=== PATIENT | male | born 1955 | race Caucasian/White ===

== ENCOUNTER → 2017-02-07 | Outpatient (CLI) | payer OTHER | LOC: BMCIMAGING 16:33 | PROVIDERS: ATTEND Internal Medicine | DX: T14.90 Injury, unspecified (principal) ==

== ENCOUNTER 2018-09-03 12:03 | Emergency (ER) | payer OTHER ==
--- NOTE | 2018-09-03 12:59 | EDPHY ---
H & P Stated Complaint: Hit head on sign at 0945, headache, left neck and shoulder pain. Time Seen by Provider: 09/03/18 12:41 - Personal History Current Tetanus Diphtheria and Acellular Pertussis (TDAP): Yes - Medical/Surgical History Hx Asthma: No Hx Chronic Respiratory Disease: No Hx Diabetes: No Hx Cardiac Disease: No Hx Renal Disease: No Hx Cirrhosis: No Hx Alcoholism: No Hx HIV/AIDS: No Hx Splenectomy or Spleen Trauma: No Other PMH: Brain AVM w/surg, epilepsy. meniscus repair, foot surg w/pins - Social History Smoking Status: Never smoked Constitutional: Initial Vital Signs Temperature (C) 36.5 C 09/03/18 12:05 Heart Rate 68 09/03/18 12:05 Respiratory Rate 16 09/03/18 12:05 Blood Pressure 132/88 H 09/03/18 12:05 O2 Sat (%) 98 09/03/18 12:05 O2 Delivery Mode Room Air Allergies/Adverse Reactions: carbamazepine [From Tegretol] Allergy (Verified 09/03/18 12:10) levetiracetam [From Keppra] Allergy (Verified 09/03/18 12:10) Home Medications: Medication Instructions Recorded Lamotrigine 10/10/13 Medical Decision Making - Diagnostics Imaging Results: Imaging Impressions Head CT 09/03/18 13:04 Impression: 1. 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 2. There is no acute intracranial abnormality identified on this unenhanced CT evaluation. 3. Chronic paranasal sinus mucosal thickening, as above-detailed. If there is further clinical concern regarding the patient's symptoms, MR imaging is suggested, if not otherwise contraindicated. Findings were discussed with Shaun James MD at 14:20, on 09/03/2018. Imaging: Discussed imaging studies w/ body recall instructor Radiologist, I viewed and interpreted images myself ED Course/Re-evaluation: CHIEF COMPLAINT: Hit head, confusion, photophobia HISTORY OF PRESENT ILLNESS: The patient is a 62 y/o male with a history of a brain AVM requiring surgery complaining of confusion, headache, and neck pain secondary to hitting his head today. At 09:45, 3 hours ago, the patient hit his head on a hanging sign. He did not lose consciousness and has no amnesia. However, since hitting his head he has felt more confused, and developed light sensitivity, neck and left shoulder pain. Due to the combination of symptoms he decided to present to the emergency department. No fever, shortness of breath, chest pain, abdominal pain , urinary or bowel complaints, numbness, paresthesias. REVIEW OF SYSTEMS: A comprehensive 10 system review of systems is otherwise negative aside from elements mentioned in the history of present illness and medical decision making. PHYSICAL EXAM: HR, BP, O2 Sat, RR. Temp noted General Appearance: Alert, well hydrated, appropriate, and non-toxic appearing. Head: Small right samaritan contusion. Eyes: Pupils equal, round, reactive to light and accommodation, EOMI, no trauma , no injection. Ears: Clear bilaterally, no perforation, normal landmarks Nose: Atraumatic, no rhinorrhea, clear. Throat: There is no erythema or exudates, no lesions, normal tonsils, mucus membranes moist. Neck: Supple, 2+ carotid upstroke, nontender, no lymphadenopathy. Respiratory: No retractions, no distress, no wheezes, and no accessory muscle use. Lungs are clear to auscultation bilaterally. Cardiovascular: Regular rate and rhythm, no murmurs, rubs, or gallops. Bilateral carotid, radial, dorsalis pedis, and posterior tibial pulses intact. Good capillary refill all extremities. Gastrointestinal: Abdomen is soft, nontender, non-distended, no masses, no rebound, no guarding, no peritoneal signs. Musculoskeletal: Normal active ROM of all extremities, atraumatic. Neurological: Alert, appropriate, and interactive. The patient has normal DTRs and non-focal cranial nerves, motor, sensory, and cerebellar exam. Skin: No rashes, good turgor, no nodules on palpation. Past medical history: Epilepsy Past surgical history: Brain AVM surgery, meniscus repair, foot surgery Family history: Denies Social history: Lives in [place], single, not employed DIAGNOSTICS/PROCEDURES/CRITICAL CARE TIME: Head CT: No acute findings. DIFFERENTIAL DIAGNOSIS: The differential diagnosis for the patient's head injury included but was not limited to concussion, skull fracture, intra-parenchymal contusion, subarachnoid , subdural and epidural hematoma. MEDICAL DECISION MAKING: The patient is a 62 y/o male with a history of a brain AVM requiring surgery presenting with confusion, headache, and neck pain secondary to hitting his head today. On exam he is photophobic and has a small contusion on his right samaritan. patient does meet [place] Head CT requirements. Head CT ordered. 1423: I spoke with Dr. Holland, radiologist, regarding patient's head CT which is normal. 1429: Reassessed patient and discussed imaging findings. He appears much better and is feeling better. I have advised him to follow up with Dr. Velasquez. Concussion precautions and return precautions provided; patient is comfortable with this plan. 1445: Reassessed patient as he is now concerned about his right shoulder and left wrist pain. It is possible that the patient has a right anterior cuff injury, but the patient has chronic left wrist pain. I have advised him to follow up with is PCP within the next week for further evaluation. Patient is comfortable with this plan. - Data Points Medications Given: Discontinued Medications Ondansetron HCl (Zofran Odt) 4 mg PO EDNOW ONE Stop: 09/03/18 13:38 Last Admin: 09/03/18 14:43 Dose: Not Given Departure - Departure Disposition: Home, Routine, Self-Care Clinical Impression: Left wrist pain Head injury Qualifiers: Encounter type: initial encounter Qualified Code(s): S09.90XA - Unspecified injury of head, initial encounter Concussion Qualifiers: Encounter type: initial encounter Loss of consciousness presence/duration: without LOC Qualified Code(s): S06.0X0A - Concussion without loss of consciousness, initial encounter Right shoulder pain Qualifiers: Chronicity: acute Qualified Code(s): M25.511 - Pain in right shoulder Condition: Good Instructions: Concussion (ED), Head Injury (ED), Shoulder Pain (ED) Additional Instructions: 1. Apply ice to sore areas and take 600mg ibuprofen every 6-8 hours or 650mg Tylenol every 4-6 hours for pain for the next few days. 2. Cognitive rest while symptoms are present. Avoid screen time including TV, phones, and computers until symptoms improve. 3. Physical rest while symptoms are present. You can perform light aerobic activities. Avoid any activities that could put you at further risk for a head injury until your symptoms resolve including contact sports, bicycling, etc. This may be 2 weeks or longer. 4. Follow up with Dr. Velasquez, head injury specialist, for unimproved symptoms over the next 10-14 days. It's not uncommon to experience fatigue, mood swings, and difficulty concentrating with concussions. 5. Return to the ED for severe headache, weakness or numbness on one side of your body, vision changes, or other worsening of condition. 6. Follow-up with your orthopedic surgeon for further investigation of your wrist and shoulder pain. Referrals: Toan Bryson MD [Primary Care Provider] - As per Instructions Rosalie Velasquez MD [Medical Doctor] - As per Instructions London Hennessy MD [Medical Doctor] - As per Instructions Report Scribed for: Shaun James Report Scribed by: Mishel Guevara Date of Report: 09/03/18 Time of Report: 13:01
[2018-09-03] MEDS ORDERED: ONDANSETRON DISINTEGRATING 4 MG TAB PO ONE (13:37)
[2018-09-03 15:00] VITALS: BP 124/67
== END 2018-09-03 15:00 | disposition home or self-care (01) ==
DX: S06.0X0A Concussion without loss of consciousness, initial encounter (principal); M25.532 Pain in left wrist; M25.511 Pain in right shoulder; W22.8XXA Striking against or struck by other objects, initial encounter; Y92.9 Unspecified place or not applicable; Y99.9 Unspecified external cause status; Y93.9 Activity, unspecified

== ENCOUNTER 2018-11-06 13:03 | Emergency (ER) | payer OTHER ==
--- NOTE | 2018-11-06 13:31 | EDPHY ---
H & P Stated Complaint: tremors Time Seen by Provider: 11/06/18 13:31 HPI/ROS: CHIEF COMPLAINT: Fever, occasional tremors, generalized weakness HISTORY OF PRESENT ILLNESS: The patient presents to the ED with subjective fever and chills for the past week. The patient denies any vomiting, diarrhea, dysuria, cough or infectious symptoms. The patient was seen at his primary care provider's office referred to the emergency department for further workup. The patient does have a history of having sustained a traumatic brain injury several weeks ago was seen in the emergency department and had a negative noncontrast CT scan. He has continued to be bothered by a mild post concussive symptoms of photosensitivity. The patient denies any medication changes. He does have a history of occasional involuntary movements which have been present for some time but reports the frequency and intensity have increased over the past week. REVIEW OF SYSTEMS: A comprehensive 10 point review of systems is otherwise negative aside from elements mentioned in the history of present illness. Source: Patient Exam Limitations: No limitations - Personal History Current Tetanus Diphtheria and Acellular Pertussis (TDAP): Unsure - Medical/Surgical History Hx Asthma: No Hx Chronic Respiratory Disease: No Hx Diabetes: No Hx Cardiac Disease: No Hx Renal Disease: No Hx Cirrhosis: No Hx Alcoholism: No Hx HIV/AIDS: No Hx Splenectomy or Spleen Trauma: No Other PMH: Brain AVM w/surg, epilepsy. meniscus repair, foot surg w/pins - Social History Smoking Status: Never smoked - Physical Exam Exam: General Appearance: Alert, no distress Eyes: Pupils equal and round no pallor or injection ENT, Mouth: Mucous membranes moist Respiratory: There are no retractions, lungs are clear to auscultation Cardiovascular: Regular rate and rhythm Gastrointestinal: Soft nontender abdomen, left CVA tenderness appreciated. Neurological: 5/5 strength noted all 4 extremities, occasional tremor noted of the head, bilateral upper extremities and lower extremities sporadic in nature. Skin: Warm and dry, no rashes Musculoskeletal: Neck is supple nontender Extremities: symmetrical, full range of motion Constitutional: Initial Vital Signs Temperature (C) 36.9 C 11/06/18 13:10 Heart Rate 84 11/06/18 13:10 Respiratory Rate 16 11/06/18 13:10 Blood Pressure 140/83 H 11/06/18 13:10 O2 Sat (%) 97 11/06/18 13:10 O2 Delivery Mode Room Air Allergies/Adverse Reactions: carbamazepine [From Tegretol] Allergy (Verified 11/06/18 13:09) levetiracetam [From Keppra] Allergy (Verified 11/06/18 13:09) Home Medications: Medication Instructions Recorded LaMICtal 11/06/18 Medical Decision Making ED Course/Re-evaluation: The patient presents to the ED with a week of subjective fevers, shaking chills and weakness. The patient is also been having involuntary muscle movements which are chronic however somewhat worsened from baseline. Patient was noted to be afebrile in the emergency department. He has no significant leukocytosis. He has no significant metabolic derangement. Blood cultures are obtained and pending. The patient's urinalysis demonstrates no evidence of an acute infection. Patient is nontoxic and well-appearing in the emergency department. At this point time the etiology of his symptoms are uncertain. I doubt bacterial infection based upon his history physical exam and workup. At this point time I do feel the patient can be discharged home. I do feel would be prudent to have him follow up with Neurology. He has been referred to our on-call neurologist for further evaluation. The patient has been told to return to the emergency department for markedly worsening symptoms, the development of a cough or other concerns. He is continuing to work with providers regarding his post concussive symptoms. Differential Diagnosis: Differential diagnosis includes urinary tract infection, viral illness, bacterial illness, Parkinson's disease, essential tremor - Data Points Laboratory Results: Laboratory Results 11/06/18 13:10 11/06/18 13:10 11/06/18 11/06/18 11/06/18 15:18 13:10 13:10 WBC 9.53 10^3/uL H 10^3/uL (3.80-9.50) RBC 4.83 10^6/uL 10^6/uL (4.40-6.38) Hgb 16.0 g/dL g/dL (13.7-17.5) Hct 46.1 % % (40.0-51.0) MCV 95.4 fL fL (81.5-99.8) MCH 33.1 pg pg (27.9-34.1) MCHC 34.7 g/dL g/dL (32.4-36.7) RDW 12.2 % % (11.5-15.2) Plt Count 360 10^3/uL 10^3/uL (150-400) MPV 9.7 fL fL (8.7-11.7) Neut % (Auto) 74.4 % H % (39.3-74.2) Lymph % (Auto) 12.6 % L % (15.0-45.0) [place] % (Auto) 11.8 % % (4.5-13.0) Eos % (Auto) 0.2 % L % (0.6-7.6) Baso % (Auto) 0.5 % % (0.3-1.7) Nucleat RBC Rel Count 0.0 % % (0.0-0.2) Absolute Neuts (auto) 7.09 10^3/uL H 10^3/uL (1.70-6.50) Absolute Lymphs (auto) 1.20 10^3/uL 10^3/uL (1.00-3.00) Absolute Monos (auto) 1.12 10^3/uL H 10^3/uL (0.30-0.80) Absolute Eos (auto) 0.02 10^3/uL L 10^3/uL (0.03-0.40) Absolute Basos (auto) 0.05 10^3/uL 10^3/uL (0.02-0.10) Absolute Nucleated RBC 0.00 10^3/uL 10^3/uL (0-0.01) Immature Gran % 0.5 % % (0.0-1.1) Immature Gran # 0.05 10^3/uL 10^3/uL (0.00-0.10) Sodium 134 mEq/L L mEq/L (135-145) Potassium 4.3 mEq/L mEq/L (3.5-5.2) Chloride 99 mEq/L mEq/L (97-110) Carbon Dioxide 23 mEq/l mEq/l (22-31) Anion Gap 12 mEq/L mEq/L (6-14) BUN 16 mg/dL mg/dL (7-23) Creatinine 0.8 mg/dL mg/dL (0.7-1.3) Estimated GFR > 60 Glucose 90 mg/dL mg/dL (70-100) Calcium 9.4 mg/dL mg/dL (8.5-10.4) Urine Color YELLOW Urine Appearance CLEAR Urine pH 6.0 (5.0-7.5) Ur Specific [place] 1.023 (1.002-1.030) Urine Protein NEGATIVE (NEGATIVE) Urine Ketones 1+ H (NEGATIVE) Urine Blood NEGATIVE (NEGATIVE) Urine Nitrate NEGATIVE (NEGATIVE) Urine Bilirubin NEGATIVE (NEGATIVE) Urine Urobilinogen NEGATIVE EU EU (0.2-1.0) Ur Leukocyte Esterase NEGATIVE (NEGATIVE) Urine Glucose NEGATIVE (NEGATIVE) Medications Given: Discontinued Medications Dexamethasone (Decadron Injection) 10 mg IVP EDNOW ONE Stop: 11/06/18 13:33 Last Admin: 11/06/18 14:28 Dose: Not Given Diphenhydramine HCl (Benadryl Injection) 25 mg IVP EDNOW ONE Stop: 11/06/18 13:33 Last Admin: 11/06/18 14:28 Dose: Not Given Ketorolac Tromethamine (Toradol) 30 mg IVP EDNOW ONE Stop: 11/06/18 13:33 Last Admin: 11/06/18 14:28 Dose: Not Given Metoclopramide HCl (Reglan Injection) 10 mg IVP EDNOW ONE Stop: 11/06/18 13:33 Last Admin: 11/06/18 14:28 Dose: Not Given Departure - Departure Disposition: Home, Routine, Self-Care Clinical Impression: Fatigue, Tremor Condition: Good Instructions: Fatigue (ED) Additional Instructions: 1. Please return to the ED for markedly worsening symptoms. 2. Please contact your primary care provider to discuss a referral to Neurology evaluation of your tremor. 3. The workup in the emergency department today is unrevealing. Referrals: Toan Bryson MD [Primary Care Provider] - As per Instructions
[2018-11-06] MEDS ORDERED: DEXAMETHASONE 10 MG/ML VIAL IVP ONE (13:32)
[2018-11-06] MEDS ORDERED: METOCLOPRAMIDE 10 MG/2 ML VIAL IVP ONE (13:32)
[2018-11-06] MEDS ORDERED: KETOROLAC 30 MG/1 ML SDV IVP ONE (13:32)
[2018-11-06 13:33] LABS: PLATELET COUNT 360 10^3/uL (150-400)
[2018-11-06 16:43] VITALS: BP 129/81
== END 2018-11-06 16:42 | disposition home or self-care (01) ==
LOC: EDUNIT#
DX: R53.1 Weakness (principal); R25.1 Tremor, unspecified; R50.9 Fever, unspecified
CPT/HCPCS: 80175-90; 96374